=== PATIENT | female | born 1940 | race Caucasian/White ===

== ENCOUNTER → 2016-10-24 | Outpatient (CLI) | payer OTHER, BC ==
[~2016-10-24] VITALS: Ht 162.6 cm; Wt 59.0 kg
[~2016-10-24] MED LIST: AMLODIPINE BES2.5 MG PO; AMLODIPINE BESYL5 MG PO; ASCORBIC ACID500 M3 PO; Ascorbic Acid,Ester- PO; CALCIUM600 M1 PO; Calcium Carbonate,Ca PO; Centrum Silver,Certa PO; Fosamax PO; Levaquin PO; PRAVASTATIN SOD40 MG PO; Timoptic-0.5%,Isatol BOTH EYES; VITAMIN D-3 401 EACH PO; Vitamin D PO
[2016-10-24 10:40] VITALS: BP 149/71
== END | disposition home or self-care (01) ==
LOC: IVINF 10:26
DX: M81.0 Age-related osteoporosis without current pathological fracture (principal)
CPT/HCPCS: 96365; J3489

== ENCOUNTER → 2017-11-13 | Outpatient (CLI) | payer OTHER, BC ==
[~2017-11-13] VITALS: Ht 162.6 cm; Wt 60.0 kg
[~2017-11-13] MED LIST changes: +DIOVAN HCT 31 TABLET PO
[2017-11-13 11:39] VITALS: BP 143/71
== END | disposition home or self-care (01) ==
LOC: IVINF 10:49
DX: M81.0 Age-related osteoporosis without current pathological fracture (principal)
CPT/HCPCS: 96365; J3489

== ENCOUNTER 2017-12-28 21:26 | Emergency (ER) | payer OTHER, BC ==
[~2017-12-28] VITALS: Ht 165.1 cm; Wt 59.0 kg
[2017-12-28 21:46] LABS: HEMATOCRIT 42.1 % (36.0-46.0); HEMOGLOBIN 14.8 G/DL (11.9-15.5); MCH 33.9 PG (29.0-34.0); MCHC 35.2 G/DL (30.0-36.0); MCV 96.3 FL (83-99); PLATELET COUNT 208 K/uL (156-360); RBC DIS.WIDTH-SD 46.5 % (39-53); RED BLOOD COUNT 4.37 M/uL (3.80-5.20); WHITE BLOOD COUNT 13.9 K/uL (4.1-10.2)
[2017-12-28 21:53] LABS: CHLORIDE 102 mEq/L (99-109); POTASSIUM 3.3 mEq/L (3.7-5.4); SODIUM 140 mEq/L (136-147)
[2017-12-28 21:56] LABS: TOTAL PROTEIN 6.7 g/dL (6.4-8.3)
[2017-12-28 21:57] LABS: TOTAL BILIRUBIN 0.2 mg/dL (0.0-1.0)
[2017-12-28 22:06] LABS: TROP-I INTERPRETATION NEGATIVE; TROPONIN-I < 0.01 ng/mL (0.0-0.30)
[2017-12-28 22:12] LABS: ALKALINE PHOSPHATASE 75 IU/L (3-129); ALT (GPT) 16 IU/L (3-49); AST (GOT) 21 IU/L (2-34); CREATININE 0.8 mg/dL (0.6-1.3); GFR ESTIMATE (CALCULATED) > 59 mL/min/; GLUCOSE 96 mg/dL (70-99); LIPASE 36 U/L (1.0-51.0); UREA NITROGEN (BUN) 17 mg/dL (9-23)
[2017-12-29 00:43] LABS: APPEARANCE CLEAR ((CLEAR)); BILIRUBIN NEGATIVE; BLOOD SMALL; COLOR YELLOW ((YELLOW)); GLUCOSE (STRIP) NEGATIVE; KETONES 5; LEUKOCYTES LARGE; NITRITE NEGATIVE; PROTEIN (STRIP) NEGATIVE; UROBILINOGEN 0.2 MG/DL (0.2-1.0)
[2017-12-29 00:51] LABS: BACTERIA NONE SEEN /HPF; EPITHELIAL CELLS RARE /HPF; HYALINE CASTS 15-20 /LPF; MUCUS TRACE /LPF; UCUL ADDED? YES; WHITE BLOOD CELLS 30-40 /HPF (0-5)
[2017-12-29] MEDS ORDERED: KEFLEX500 MG PO (01:04)
[2017-12-29 01:29] VITALS: BP 127/55
== END 2017-12-29 01:30 | disposition home or self-care (01) ==
LOC: EME → EDBD 21:26 → EME 12-29 01:30
PROVIDERS: Emergency Medicine
DX: N30.01 Acute cystitis with hematuria (principal); R42 Dizziness and giddiness; E86.0 Dehydration; E87.6 Hypokalemia; E78.5 Hyperlipidemia, unspecified; I10 Essential (primary) hypertension; F17.200 Nicotine dependence, unspecified, uncomplicated
CPT/HCPCS: 71046; 80053; 81003; 83690; 84484; 85027; 87086; 93005; 99281; 99285; J7030